=== PATIENT | male | born 1990 | race Caucasian/White ===

== ENCOUNTER → 2025-01-30 | Outpatient (CLI) | payer BC ==
--- NOTE | 2025-01-30 07:38 | US ---
EXAMINATION TYPE: US liver DATE OF EXAM: 01/30/2025 COMPARISON: NONE CLINICAL INDICATION: Male, 34 years old with history of R74.01 ELEVATION OF LEVELS OF LIVER TRANSAMIN ASE L; Elevation of levels of liver transaminase TECHNIQUE: Grayscale and color Doppler imaging of the right upper quadrant. FINDINGS: EXAM MEASUREMENTS: Liver Length: 16.7 cm Gallbladder Wall: 0.3 cm CBD: Obscured Right Kidney: 11.9 x 7.5 x 5.7 cm GAME ATTENDANT NOTES: Exam is limited due to gas. Pancreas: Not well seen. Liver: Increased echogenicity and attenuation. Very coarse. Limited, many images taken intercostal . 2 complex areas seen right lobe, largest: 1.8 x 1.4 x 1.2 cm. Gallbladder: Appears wnl Evidence for sonographic Carlson's sign: No CBD: Obscured Right Kidney: No hydronephrosis or masses seen IMPRESSION: 1. No evidence for acute process. 2. Hepatic steatosis. 3. 2 Probable hepatic cysts which are slightly complex. This can be further evaluated with MRI if cl inically warranted. [facility], , 01/30/2025 7:36 AM
== END | disposition home or self-care (01) ==
LOC: RADUSWWP 07:00
PROVIDERS: ATTEND Family Medicine
DX: K76.0 Fatty (change of) liver, not elsewhere classified (principal); R74.01 Elevation of levels of liver transaminase levels
CPT/HCPCS: 76705

== ENCOUNTER → 2025-03-29 | Outpatient (CLI) | payer BC ==
--- NOTE | 2025-03-31 08:44 | MR ---
EXAMINATION TYPE: MR abdomen wo/w con DATE OF EXAM: 03/29/2025 7:21 PM COMPARISON: Ultrasound 01/30/2025. CLINICAL INDICATION: Male, 35 years old with history of K76.89 OTHER SPECIFIED DISEASES OF LIVER; PHH , Abnormal US, No symptoms started with bloodwork at annual physical TECHNIQUE: Multiplanar multi-sequence imaging was performed without contrast. Post contrast imaging was performed. Post IV contrast subtraction images were also submitted for review. IV Contrast: 15 mL Gadavist FINDINGS: LOWER CHEST: Heart is mildly enlarged for size. ABDOMEN Liver: No evidence for cirrhosis. Signal dropout on chemical shift out of phase imaging. Scattered si mple appearing high T2 signal cysts throughout the liver parenchyma measuring up to 9 mm.. No abnorma l postcontrast enhancement within these cysts. No suspicious enhancing lesions. Gallbladder and Bile ducts: No evidence for ductal dilation, or biliary stricture or evidence of chol edocholithiasis. The gallbladder is nondistended Pancreas: No ductal dilation. No evidence for solid mass. Spleen: Normal for size. Adrenal glands: Unremarkable. Kidneys: No evidence for obstructive uropathy. No suspicious renal masses. Stomach and Bowel: No evidence for bowel wall thickening or evidence for obstruction. Retroperitoneum/Peritoneum: No evidence of pneumoperitoneum or free fluid. Vasculature: No aortic aneurysm. Musculoskeletal: The osseous structures appear intact. Lymph Nodes: No gross evidence for lymphadenopathy. Abdominal wall: Unremarkable. IMPRESSION: 1. Scattered hepatic cysts which appear simple, no suspicious observations. Suspicious. No follow-up recommended. 2. No acute abdominal process. 3. Hepatic steatosis. 4. Mild cardiomegaly. [facility], , 03/31/2025 8:42 AM
== END | disposition home or self-care (01) ==
LOC: RADMRIMAIN 17:59
PROVIDERS: ATTEND Family Medicine
DX: K76.0 Fatty (change of) liver, not elsewhere classified (principal); K76.89 Other specified diseases of liver; I51.7 Cardiomegaly
CPT/HCPCS: 74183; A9585